=== PATIENT | female | born 1970 | race Caucasian/White ===

== ENCOUNTER 2025-01-07 10:56 | Emergency (ER) | payer BC, SELFPAY ==
[2025-01-07 11:04] VITALS: BP 114/83
--- NOTE | 2025-01-07 13:36 | ED.GENMED ---
History of Present Illness
General
Chief Complaint: Bowel Problem
Source: patient
Exam Limitations: none
Time Seen by Provider: 01/07/25 13:18
History of Present Illness
History of Present Illness:
54yoF presenting for evaluation of constipation. Her last bowel movement was 4-5 days ago. She reports rectal pressure and discomfort and feeling like she is impacted. No significant abdominal pain. She denies any vomiting, difficulty urinating,
or rectal bleeding. She tried a Fleets enema x2 without any relief. She was seen in the ED in 2021 for similar complaints and a had a milk of molasses enema with improvement. She has never had a colonoscopy before.
Past History
Past History
ED Past Medical History: None
ED Past Surgical History: None
Social History
Tobacco: Non-smoker
Alcohol: Occasional
Family History
Family History: Other (Father with diabetes)
Phy Exam
General Physical Exam
General Presentation: well appearing and no apparent distress
General Skin: warm and dry
General Habitus: normal
General Mental: alert
ENT Exam
ENT Exam: normocephalic
Pulmonary Exam
Pulmonary Exam: no respiratory distress
Gastrointestinal Exam
Gastrointestinal Exam: non tender, soft and non distended
Rectal Exam: other (Hard stool present on rectal exam)
Neurological Exam
Neurological Exam: alert
Yuly Coma Scale
Eye Opening: Spontaneous
Verbal Response: Oriented
Motor Response: Obeys Commands
GCS Total Score: 15
Skin Exam
Skin Exam: normal color and warm/dry
Psychiatric Exam
Psychiatric Exam: normal mood/affect
Course
Orders/Labs/Results
Orders:
Orders
01/07/25 11:06
CR Obstruct Series W/pa Chest Urgent
Comment:
Reason For Exam: constipation, hx of obstruction
01/07/25 13:25
Enema- Treatment ONCE
Type: Milk of Molasses
Vital Signs
Initial and Last Documented VS:
Initial Vital Signs
Temp Pulse Resp BP Pulse Ox
98.6 F 91 18 114/83 94
01/07/25 11:04 01/07/25 11:04 01/07/25 11:04 01/07/25 11:04 01/07/25 11:04
Last Documented Vital Signs
Temp Pulse Resp BP Pulse Ox
98.6 F 91 18 114/83 94
01/07/25 11:04 01/07/25 11:04 01/07/25 11:04 01/07/25 11:04 01/07/25 13:39
MDM/Problems Addressed
Differential Diagnosis Includes:
54yoF here with constipation and rectal pressure. No BM for the past 4-5 days. No vomiting or urinary symptoms. VSS. Abdominal exam is benign. Hard stool present on rectal exam. Differential diagnosis includes: fecal impaction, constipation, doubt
SBO
Initial ED plan: KUB obtained in triage shows shows mild constipation with nonobstructive bowel gas pattern. Stool is too proximal for disimpaction. Will order milk of molasses enema.
*Pulse Oximetry
SaO2: 94
Patient hypoxic: no (94%)
*Critical Care Note
Total Time (30-74mins, 75-104mins- exclusive of procedures): Not Applicable
Update Note
Update Note:
Patient able to large BM after enema and reports significant improvement in symptoms. Rectal pressure resolved. Patient stable for discharge. She was instructed to take Miralax until bowel movements regulate. She has never had a colonoscopy before
and is 54 years old. She was referred to GI for outpatient colonoscopy. Patient discharged in stable condition.
ED Attending Note
-
Portions of this chart may have been created with voice recognition software.� Occasional wrong word or��sound alike� substitutions may have occurred due to the inherent limitations of voice recognition software.
Discharge Plan
Departure
Patient Disposition: Home (Routine Discharge)
Date of Disposition: 01/07/25
Time of Disposition: 14:37
Patient with high blood pressure during this ER visit?: No
Discharge Problem:
Fecal impaction
Instructions: Fecal Impaction (DC)
Prescriptions:
No Action
PRENACARE TABLET
oseltamivir [Tamiflu] 75 MG capsule
75 mg PO BID Qty: 10 0RF
Referrals:
Renuka Bishop MD [Active, Gastroenterology]
Jose Dunaway MD [Family Provider, Family Practice]
Activity Restrictions/Additional Instructions:
Take MiraLAX daily until bowel movements regulate.
Please call today to schedule a follow-up appointment with gastroenterology. You will need a colonoscopy for colon cancer screening.
Return to the ER with any new or worsening symptoms.
Interventions
Interventions:
*Risk Screen - Suicide Last Done: 01/07/25 11:06
*General Assessment Last Done: 01/07/25 14:45
*Neglect/Abuse Screening Last Done: 01/07/25 11:06
*ED- Fall Risk Assessment Last Done: 01/07/25 14:45
*ED COVID-19 Vaccine History Last Done: 01/07/25 14:45
*Nursing Disposition Last Done: 01/07/25 14:45
YB-Qletug-Kwwycuhkpt Assessment Last Done: 01/07/25 14:45
Discharge Date and Time
Print Language: MOZAMBICAN
== END 2025-01-07 14:45 | disposition home or self-care (01) ==
LOC: EMR 10:56
PROVIDERS: EMERGENCY PHYSICIAN Emergency Medicine; FAMILY PHYSICIAN Family Medicine
DX: K56.41 Fecal impaction (principal)
CPT/HCPCS: 99283; 74022